=== PATIENT | male | born 1940 | race Caucasian/White ===

== ENCOUNTER 2016-08-18 12:25 | Inpatient (IN) | payer MEDICARE ==
[2016-08-18] MEDS ORDERED: NS 500 ML IV ONE (12:50)
[2016-08-18] MEDS ORDERED: ASPIRIN 325 MG TAB PO ONE (12:50)
[2016-08-18] MEDS ORDERED: SODIUM CHLORIDE 0.9% 3 ML FLUSH FLUSH PRN (12:50)
[2016-08-18] MEDS ORDERED: NS 1,000 ML IV ONE (12:50)
[2016-08-18] MEDS ORDERED: NITROGLYCERINE 0.4 MG TAB SL PRN ×2 (12:56→16:45)
--- NOTE | 2016-08-18 12:58 | EDPRACDOC ---
- General Information Information Source: Patient Mode of Arrival: Car - History of Present Illness Onset: 0500 HPI: PT STATES WOKE UP THIS AM STARTED HAVING CHEST TIGHTNESS HEAVINESS WITH SOB NAUSEA AND TROUBLE BREATHING AND DISCOMFORT RADIATING INTO HIS NECK. PT STATES HE HAS INTERMITTENT INCREASE IN SOB FOR SOMETIME BUT GOT SIGNIFICANTLY WORSE THIS AM. Chest Pain Location: Reports: Substernal Pain Radiation: Reports: Neck Symptoms Occur: Reports: Gradually (WORSENED SIGNIFICANTLY THIS AM.) Cardiac Risk Factors: Reports: Family History, Hyperlipidemia, Hypertension Cardiac History of: Reports: Cardiac Cath (20YRS AGO) PE Risk Factors: Reports: None Medications within 24 Hours: Reports: Aspirin Prehospital Care: Reports: None Pain Came On: Reports: Suddenly Pain Status: Present Now Pain Description: Reports: Pressure, Heavy, Tightness Pain Severity: Moderate Pain Worsens With: Reports: Exertion Pain Improves With: Reports: Nothing Associated Signs and Symptoms: Reports: SOB <Delia Murillo - Last Filed: 08/18/16 14:21> <Nicol Rosas - Last Filed: 08/18/16 15:24> - General Information Chief Complaint: Chest Pain Stated Complaint: CP TROUBLE BREATHING Time Seen by Provider: 08/18/16 12:48 Home Medications: Home Medications Tamsulosin HCl [Flomax] 0.4 mg PO QAM 09/28/13 Vit B Comp/C/FA/Iron/Vit E [Vitamin B Complex Tablet] 1 tab PO DAILY 09/28/13 Allopurinol [Zyloprim] 300 mg PO QAM 08/09/14 Ascorbic Acid [Vitamin C] 1,000 mg PO DAILY 08/09/14 Aspirin (OrangeEnteric Coated) [Ecotrin] 325 mg PO HS 08/09/14 Atorvastatin Calcium [Lipitor] 80 mg PO HS 08/09/[address] [place]S/Dha/Epa/Fish Oil [Fish Oil 1,200 mg Softgel] 1,200 mg PO BID 08/09/14 Vitamins, Multiple [Unicap] 1 cap PO DAILY 08/09/14 Furosemide [Lasix] 40 mg PO QAM 08/18/16 Losartan Potassium [Cozaar] 100 mg PO QAM 08/18/16 Potassium Chloride 10 meq PO BID 08/18/16 Verapamil HCl [Verapamil ER] 240 mg PO HS 08/18/16 Allergies/Adverse Reactions: Allergies Allergy/AdvReac Type Severity Reaction Status Date / Time azithromycin [From Zithromax] Allergy Intermediate Rash-Genera Verified 12:41 lized ceftriaxone sodium Allergy Intermediate Rash-Genera Verified 08/18/16 12:41 [From Rocephin] lized ED Past Medical History - History Reviewed Yes Nurses notes reviewed and agree except as marked Travel Outside of [place] in the Last 3 Months?: No - Patient Medical History Cardiac History: Reports: Hypertension, Hypercholesterolemia Respiratory History: Denies: Pneumonia GI/ History: Reports: Ulcer (1995) Musculoskeletal History: Reports: Gout, Osteoarthritis (C-spine) Psychological History: Denies: Substance Use Disorder Systemic History: Reports: Cancer (prostate) Surgical History: Reports: Appendectomy, Hernia Surgery (umbilical hernia), Other (L hip ORIF, L knee surgery, Right BKA) - Family Medical History Reports: Diabetes (MGM, son), Cancer (STOMACH-GRANDMOTHER AGE 84), Cardiac Disorders (mom-CHF, Bro- AAA) - Social Medical History Social History: Denies: Substance Use Disorder ETOH: None Substance Abuse: None Lives With: Spouse Lives In: Home <Delia Murillo - Last Filed: 08/18/16 14:21> EDM Review of Systems - Review of Systems ROS Negative Except as Marked: Yes All systems reviewed and were negative except as marked Constitutional: No Symptoms Reported. negative: Fever, Chills, Weakness, Fatigue, Loss of Appetite Eyes: No Symptoms Reported. negative: Redness, Blurred Vision, Double Vision, Discharge, Pain, Light Sensitive, Photophobia Ears: No Symptoms Reported. negative: Pain, Hearing Loss, Drainage, Ear Pulling Throat: No Symptoms Reported. negative: Pain, Swelling Nose: No Symptoms Reported. negative: Congestion, Bleeding, Discharge, Injection, Swelling, Deformity, Ecchymosis, Tender, Abrasion, Laceration Mouth: No Symptoms Reported. negative: Pain, Drooling Respiratory: Cough. negative: Barky Cough, Brassy Cough, Hemoptysis, Shortness of Breath, Wheezing Cardiovascular: Chest Pain. negative: Cyanosis, Edema, Orthopnea, Palpitations , PND, Syncope, Skin Mottling Gastrointestinal: No Symptoms Reported. negative: Pain, Constipation, Nausea, Vomiting, Diarrhea, Melena, Formula Intolerance Genitourinary: No Symptoms Reported. negative: Dysuria, Hematuria, Frequency, Discharge, Bleeding, Testicular Pain, Neurological: No Symptoms Reported. negative: Headache, Dizziness, Seizure, Numbness, Weakness, Speech Difficulty, Gait Difficulty Musculoskeletal: No Symptoms Reported. negative: Neck, Chestwall, Ribs, Back, Shoulder, Arm, Elbow, Forearm, Wrist, Hand, Pelvis, Hip, Femur, Knee, Leg, Ankle , Foot Integumentary: No Symptoms Reported. negative: Itching, Rash, Bruising, Wound Allergic/Immunologic: No Symptoms Reported. negative: Hives, Itching Hematologic: No Symptoms Reported. negative: Lymphadenopathy, Easy Bruising, Easy Bleeding Endocrine: No Symptoms Reported. negative: Weight Gain, Weight Loss Psychiatric: No Symptoms Reported. negative: Anxiety, Depression, Hallucinations, Insomnia, Suicidal <Delia Murlilo - Last Filed: 08/18/16 14:21> - Physical Exam Constitutional: No apparent distress, Alert (Awake) Oriented to: Time, Person, Place Last recorded Vital Signs: Last Vital Signs Temp 98.0 F 08/18/16 12:41 Pulse 73 08/18/16 12:41 Resp 26 H 08/18/16 12:41 BP 179/86 08/18/16 12:41 Pulse Ox 96 08/18/16 12:41 Oxygen Pulse Oxygen Saturation 96 O2 Device Room Air Oxygen Flow Rate Fraction of Inspired Oxygen ( FIO2) - HEENT Head: Normal ( normocephalic) Eye Exam: Normal (PERRL, EOMI, Sclera white) Oropharynx: Normal (Pharynx:Moist without exudate,Gums-no swelling) Tympanic Membrane: Normal ENT EAC: Normal TMJ: Normal Nose: No Symptoms Reported (septum midline) Neck: Normal (FROM, trachea at midline) - Respiratory/Cardiovascular Respiratory: Accessory Muscle Use, Diminished, Tachypnea Cardiovascular: Normal (RRR without murmur, gallop or rub) - GI Auscultation: Normal (NABS) Palpation: Normal (Soft,No rebound or guarding, non distended) Tenderness: Non tender [place]'s Sign: Negative - Bladder: Normal - Musculoskeletal Back: Normal (Non-Tender) Extremities: Normal (Normal tone, Pulses 2+ No cyanosis or edema, FROM) - Integumentary Skin: Normal, Warm, Dry Lymphatics: Normal (no adenopathy) - Neurologic Memory Impaired: Normal Motor Function: Normal (Normal tone, Pulses 2+ No cyanosis or edema, FROM) Cranial Nerve: Normal (CN II-X11 intact sensation, strength 5/5) Cerebellar: Normal Mood Description: Normal Perception: Normal <Delia Murillo - Last Filed: 08/18/16 14:21> - Physical Exam Last recorded Vital Signs: Last Vital Signs Temp 98.0 F 08/18/16 12:41 Pulse 65 08/18/16 14:59 Resp 18 08/18/16 14:59 BP 175/72 08/18/16 14:59 Pulse Ox 97 08/18/16 14:59 Oxygen Pulse Oxygen Saturation 97 O2 Device Room Air Oxygen Flow Rate Fraction of Inspired Oxygen ( FIO2) <Nicol Rosas - Last Filed: 08/18/16 15:24> ED Chest Pain Exam - Respiratory/Cardiovascular Respiratory: Accessory Muscle Use, Tachypnea Cardiovascular/Chest: Normal (RRR without murmur, gallop or rub) Radial Pulse: Normal Femoral Pulse: Normal Pedal Pulse: Normal Carotid Arteries: Normal Edema: 5 Chest Palpation: Normal (No chest tenderness) <Delia Murillo - Last Filed: 08/18/16 14:21> - Differential Diagnosis Angina, Chest wall pain, Esophageal reflux/spasm, Gastritis, Myocardial infarction, Pneumonia - Action ASA given in the ED: Yes Patient received Beta Esteban within last 24hrs: No - Re-evaluation Re-evaluation 1 Re-evaluation Time: 14:21 (PT STATES HAVING SOME RELIEF AFTER THE SECOND NITRO. PT APPEARS MORE COMFORTABLE AND NOT WORKING TO BREATH MUCH) - Results 08/18/16 13:45 08/18/16 13:45 - EKG EKG #1 EKG Time: 12:32 -: Yes EKG interpreted by me Rate: bpm: 77 [place]: Normal Rhythm: NSR Block: None Hypertrophy: None ST: Normal - Diagnostic Imaging CXR Image interpreted by: Radiologist IMPRESSION: No acute cardiopulmonary abnormality seen. <Delia Murillo - Last Filed: 08/18/16 14:21> - Results 08/18/16 13:45 08/18/16 13:45 WBC 8.3 xk/uL (3.8-10.8) 08/18/16 13:45 RBC 4.56 xM/uL (4.70-6.10) L 08/18/16 13:45 Hgb 14.0 g/dL (14.0-18.0) 08/18/16 13:45 Hct 41.5 % (42-52) L 08/18/16 13:45 MCV 91 fL (80-94) 08/18/16 13:45 MCH 30.7 pg (27-32) 08/18/16 13:45 MCHC 33.7 g/dl (33-36) 08/18/16 13:45 RDW 15.7 % (11.5-14.5) H 08/18/16 13:45 Plt Count 121 xk/uL (130-400) L 08/18/16 13:45 MPV 9.1 fL (7.4-10.4) 08/18/16 13:45 Neut % (Auto) 75.6 % (45-76) 08/18/16 13:45 Lymph % (Auto) 16.4 % (17-44) L 08/18/16 13:45 [place] % (Auto) 5.6 % (3-10) 08/18/16 13:45 Eos % (Auto) 1.8 % (0-5) 08/18/16 13:45 Baso % (Auto) 0.6 % (0-2) 08/18/16 13:45 Absolute Neuts (auto) 6.23 xk/uL (1.7-8.2) 08/18/16 13:45 Absolute Lymphs (auto) 1.33 xk/uL (0.65-4.75) 08/18/16 13:45 PT 10.8 SEC (9.2-11.2) 08/18/16 13:45 INR 1.1 08/18/16 13:45 APTT 24.3 SEC (22-35) 08/18/16 13:45 Sodium 141 mEq/L (137-146) 08/18/16 13:45 Potassium 4.2 mEq/L (3.5-5.1) 08/18/16 13:45 Chloride 101 mEq/L (98-107) 08/18/16 13:45 Carbon Dioxide 32 mMOL/L (22-33) 08/18/16 13:45 Anion Gap 12 mEq/L (8-16) 08/18/16 13:45 BUN 21 MG/DL (9-20) H 08/18/16 13:45 Creatinine 0.60 MG/DL (0.66-1.25) L 08/18/16 13:45 Estimated GFR (MDRD) > 60 mL/min (>=60) 08/18/16 13:45 Glucose 103 MG/DL (70-99) H 08/18/16 13:45 Calculated Osmolality 274 MOs/Kg (270-290) 08/18/16 13:45 Calcium 9.7 MG/DL (8.4-10.2) 08/18/16 13:45 Total Bilirubin 0.8 MG/DL (0.2-1.3) 08/18/16 13:45 AST 38 IU/L (17-59) 08/18/16 13:45 ALT 38 IU/L (21-72) 08/18/16 13:45 Alkaline Phosphatase 130 IU/L (50-160) 08/18/16 13:45 Troponin I < 0.01 ng/mL (<.04) 08/18/16 13:45 Blz-A-Jmywxenuovh Pept 93 pg/mL (0-900) 08/18/16 13:45 Total Protein 7.3 G/DL (6.3-8.2) 08/18/16 13:45 Albumin 4.1 G/DL (3.5-5.0) 08/18/16 13:45 Urine Color Yellow 08/18/16 13:12 Urine Clarity Clear 08/18/16 13:12 Urine pH 8.0 (5.0-8.0) 08/18/16 13:12 Ur Specific [place] </=1.005 (1.003-1.035) 08/18/16 13:12 Urine Protein Neg (NEG/TRACE) 08/18/16 13:12 Urine Glucose (UA) Neg (NEGATIVE) 08/18/16 13:12 Urine Ketones Neg (NEGATIVE) 08/18/16 13:12 Urine Occult Blood Neg (NEG/TRACE) 08/18/16 13:12 Urine Nitrite Neg (NEGATIVE) 08/18/16 13:12 Urine Bilirubin Neg (NEGATIVE) 08/18/16 13:12 Urine Urobilinogen <2.0 MG/DL (0-1) 08/18/16 13:12 Ur Leukocyte Esterase Trace (NEGATIVE) H 08/18/16 13:12 Urine RBC 0-2 (0-2) 08/18/16 13:12 Urine WBC 0-2 (0-2) 08/18/16 13:12 Urine Mucus Occ (NEG/OCC) 08/18/16 13:12 Lab Results 08/18/16 08/18/16 08/18/16 13:45 13:45 13:45 WBC 8.3 RBC 4.56 L Hgb 14.0 Hct 41.5 L MCV 91 MCH 30.7 MCHC 33.7 RDW 15.7 H Plt Count 121 L MPV 9.1 Neut % (Auto) 75.6 Lymph % (Auto) 16.4 L [place] % (Auto) 5.6 Eos % (Auto) 1.8 Baso % (Auto) 0.6 Absolute Neuts (auto) 6.23 Absolute Lymphs (auto) 1.33 PT 10.8 INR 1.1 APTT 24.3 Sodium 141 Potassium 4.2 Chloride 101 Carbon Dioxide 32 Anion Gap 12 BUN 21 H Creatinine 0.60 L Estimated GFR (MDRD) > 60 Glucose 103 H Calculated Osmolality 274 Calcium 9.7 Total Bilirubin 0.8 AST 38 ALT 38 Alkaline Phosphatase 130 Troponin I < 0.01 Zpk-F-Hixpbqancfi Pept 93 Total Protein 7.3 Albumin 4.1 Urine Color Urine Clarity Urine pH Ur Specific [place] Urine Protein Urine Glucose (UA) Urine Ketones Urine Occult Blood Urine Nitrite Urine Bilirubin Urine Urobilinogen Ur Leukocyte Esterase Urine RBC Urine WBC Urine Mucus 08/18/16 13:12 WBC RBC Hgb Hct MCV MCH MCHC RDW Plt Count MPV Neut % (Auto) Lymph % (Auto) [place] % (Auto) Eos % (Auto) Baso % (Auto) Absolute Neuts (auto) Absolute Lymphs (auto) PT INR APTT Sodium Potassium Chloride Carbon Dioxide Anion Gap BUN Creatinine Estimated GFR (MDRD) Glucose Calculated Osmolality Calcium Total Bilirubin AST ALT Alkaline Phosphatase Troponin I Dga-R-Bacmzrahwdy Pept Total Protein Albumin Urine Color Yellow Urine Clarity Clear Urine pH 8.0 Ur Specific [place] </=1.005 Urine Protein Neg Urine Glucose (UA) Neg Urine Ketones Neg Urine Occult Blood Neg Urine Nitrite Neg Urine Bilirubin Neg Urine Urobilinogen <2.0 Ur Leukocyte Esterase Trace H Urine RBC 0-2 Urine WBC 0-2 Urine Mucus Occ Laboratory Results - last 24 hr 08/18/16 08/18/16 08/18/16 13:12 13:45 13:45 WBC 8.3 RBC 4.56 L Hgb 14.0 Hct 41.5 L MCV 91 MCH 30.7 MCHC 33.7 RDW 15.7 H Plt Count 121 L MPV 9.1 Neut % (Auto) 75.6 Lymph % (Auto) 16.4 L [place] % (Auto) 5.6 Eos % (Auto) 1.8 Baso % (Auto) 0.6 Absolute Neuts (auto) 6.23 Absolute Lymphs (auto) 1.33 PT INR APTT Sodium 141 Potassium 4.2 Chloride 101 Carbon Dioxide 32 Anion Gap 12 BUN 21 H Creatinine 0.60 L Estimated GFR (MDRD) > 60 Glucose 103 H Calculated Osmolality 274 Calcium 9.7 Total Bilirubin 0.8 AST 38 ALT 38 Alkaline Phosphatase 130 Troponin I < 0.01 Ppw-M-Ietkuoecdsc Pept 93 Total Protein 7.3 Albumin 4.1 Urine Color Yellow Urine Clarity Clear Urine pH 8.0 Ur Specific [place] </=1.005 Urine Protein Neg Urine Glucose (UA) Neg Urine Ketones Neg Urine Occult Blood Neg Urine Nitrite Neg Urine Bilirubin Neg Urine Urobilinogen <2.0 Ur Leukocyte Esterase Trace H Urine RBC 0-2 Urine WBC 0-2 Urine Mucus Occ 08/18/16 13:45 WBC RBC Hgb Hct MCV MCH MCHC RDW Plt Count MPV Neut % (Auto) Lymph % (Auto) [place] % (Auto) Eos % (Auto) Baso % (Auto) Absolute Neuts (auto) Absolute Lymphs (auto) PT 10.8 INR 1.1 APTT 24.3 Sodium Potassium Chloride Carbon Dioxide Anion Gap BUN Creatinine Estimated GFR (MDRD) Glucose Calculated Osmolality Calcium Total Bilirubin AST ALT Alkaline Phosphatase Troponin I Bov-O-Zhxfgsxsbwc Pept Total Protein Albumin Urine Color Urine Clarity Urine pH Ur Specific [place] Urine Protein Urine Glucose (UA) Urine Ketones Urine Occult Blood Urine Nitrite Urine Bilirubin Urine Urobilinogen Ur Leukocyte Esterase Urine RBC Urine WBC Urine Mucus Laboratory Results 08/18/16 13:45 08/18/16 13:45 <Nicol Rosas - Last Filed: 08/18/16 15:24> <Delia Murillo - Last Filed: 08/18/16 14:21> - Departure Yes I personally saw and evaluated the patient. Disposition: Admit IP To This Hospital Education/Counseling Given To: Patient Education/Counseling Given Regarding: Diagnosis, Treatment Decision to Admit Time: 15:24 Decision to admit date: 08/18/16 Decision to admit: from ED - Physician Consulted Hospitalist Provider Called: Oskar St <Nicol Rosas - Last Filed: 08/18/16 15:24> - Departure Condition: Fair Final Diagnosis: Acute coronary syndrome Instructions: Chest Pain (ED)
[2016-08-18 13:43] LABS: LEUKOCYTES/URINE TRACE (NEGATIVE); NITRITE/URINE NEG (NEGATIVE); RBC/URINE 0-2 (0-2); URINE OCCULT BLOOD NEG (NEG/TRACE); WBC/URINE 0-2 (0-2)
--- NOTE | 2016-08-18 13:46 | DIRPT ---
CLINICAL DATA: Chest pain, shortness of breath. EXAM: PORTABLE CHEST 1 VIEW COMPARISON: August 11, 2014. FINDINGS: Stable cardiomediastinal silhouette. No pneumothorax or pleural effusion is noted. Both lungs are clear. The visualized skeletal structures are unremarkable. IMPRESSION: No acute cardiopulmonary abnormality seen. Electronically Signed By: Luis St Jr, M.D. On: 08/18/2016 13:44
[2016-08-18 14:02] LABS: AUTOMATED BASOPHIL 0.6 % (0-2); AUTOMATED EOSINOPHIL 1.8 % (0-5); AUTOMATED LYMPH 16.4 % (17-44); AUTOMATED MONOCYTE 5.6 % (3-10); AUTOMATED NEUTROPHIL 75.6 % (45-76); MPV 9.1 fL (7.4-10.4)
[2016-08-18 14:16] LABS: BLOOD UREA NITROGEN 21 MG/DL (9-20); CALCIUM 9.7 MG/DL (8.4-10.2); CALCULATED OSMOLALITY 274 MOs/Kg (270-290); CHLORIDE 101 mEq/L (98-107); GLUCOSE 103 MG/DL (70-99); SODIUM LEVEL 141 mEq/L (137-146); TOTAL PROTEIN 7.3 G/DL (6.3-8.2)
[2016-08-18 14:18] LABS: PARTIAL THROMB. TIME 24.3 SEC (22-35); PT-INR 1.1
[2016-08-18] MEDS ORDERED: MORPHINE 4 MG/ML INJECTION IV ONE (14:22)
[2016-08-18] MEDS ORDERED: METOPROLOL 5 MG/5 ML SDV IV ONE (14:25)
[2016-08-18] MEDS ORDERED: ONDANSETRON HCL 4 MG/2 ML VIAL IV PRN (16:04)
[2016-08-18] MEDS ORDERED: MAGNESIUM HYDROXIDE 30 ML BOTTLE PO PRN (16:04)
[2016-08-18] MEDS ORDERED: ACETAMINOPHEN 650 MG SUPP PR PRN (16:04)
--- NOTE | 2016-08-18 16:07 | HISTPHYS ---
- Chief Complaint chest pain - History of Present Illness Mr. Reveles is a pleasant 75-year-old white male with a history of obesity, hypertension, hyperlipidemia, who presents to the emergency room with complaint of chest pain. He says for the last couple days he has had exertional shortness of breath. This morning he was more short of breath and started having a tightness across his chest. Because of the severity of his symptoms, associated nausea and diaphoresis, he presented to the emergency room. He has received nitroglycerin and morphine with near complete relief of his symptoms. He states that he is followed by a mva operator in [place] but has never had any true cardiac issues. He says that his mva operator manages his hypertension and high cholesterol. He states he had a heart catheterization approximately 20 years ago and has had a couple stress tests over the years but none recently. 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 He states he is unable to tolerate nuclear stress tests due to claustrophobia. He has a very worrisome history for heart disease and will be admitted to the hospital for further evaluation and management. I have asked Dr. Andersen with Cardiology to see him in consultation to determine how best to proceed. - Medical History Cardiac History: Reports: Hypertension, Hypercholesterolemia Respiratory History: Reports: No Significant History. Denies: Pneumonia GI/ History: Reports: Ulcer (1995) Musculoskeletal History: Reports: Gout, Osteoarthritis (C-spine) Systemic History: Reports: Cancer (prostate) Neurological History: Reports: No Significant History Psychological History: Reports: No Significant History. Denies: Substance Use Disorder - Surgical History Reports: Appendectomy, Hernia Surgery (umbilical hernia), Other (L hip ORIF, L knee surgery, Right BKA) - Medictions/Allergies Allergies azithromycin [From Zithromax] Allergy (Intermediate, Verified 08/18/16 12:41) Rash-Generalized Pt developed rash after Rocephin/Zithromax on 08/10. Unable to determine which medication was cause. ceftriaxone sodium [From Rocephin] Allergy (Intermediate, Verified 08/18/16 12: 41) Rash-Generalized Pt developed rash after Rocephin and zithromax administered 08/10/14. Unable to determine which medication was cause. Home Medications Tamsulosin HCl [Flomax] 0.4 mg PO QAM 09/28/13 Vit B Comp/C/FA/Iron/Vit E [Vitamin B Complex Tablet] 1 tab PO DAILY 09/28/13 Allopurinol [Zyloprim] 300 mg PO QAM 08/09/14 Ascorbic Acid [Vitamin C] 1,000 mg PO DAILY 08/09/14 Aspirin (OrangeEnteric Coated) [Ecotrin] 325 mg PO HS 08/09/14 Atorvastatin Calcium [Lipitor] 80 mg PO HS 08/09/14 [place]-3S/Dha/Epa/Fish Oil [Fish Oil 1,200 mg Softgel] 1,200 mg PO BID 08/09/14 Vitamins, Multiple [Unicap] 1 cap PO DAILY 08/09/14 Furosemide [Lasix] 40 mg PO QAM 08/18/16 Losartan Potassium [Cozaar] 100 mg PO QAM 08/18/16 Potassium Chloride 10 meq PO BID 08/18/16 Verapamil HCl [Verapamil ER] 240 mg PO HS 08/18/16 - Family History Reports: Diabetes (MGM, son), Cancer (STOMACH-GRANDMOTHER AGE 84), Cardiac Disorders (mom-CHF, Bro- AAA) - Social History Lives: with Spouse Smoking Status: Former smoker Social History: Denies: Alcohol Use, Substance Use Disorder - Review of Systems Constitutional: No Symptoms Reported. negative: Fever, Chills, Weakness, Fatigue, Loss of Appetite - Eyes No Symptoms Reported. negative: Blurred Vision, Double Vision, Pain, Photophobia - Ears No Symptoms Reported. negative: Drainage, Hearing Loss, Pain - Nose No Symptoms Reported. negative: Abrasion, Bleeding, Congestion - Mouth Mouth: No Symptoms Reported. negative: Pain, Drooling, Denture - Throat/Neck No Symptoms Reported. negative: Pain, Swelling, Hoarseness, Snoring - Respiratory Shortness of Breath. negative: Cough, Wheezing, Sputum, Asthma - Cardiovascular Chest Pain, Cyanosis, Orthopnea - Gastrointestinal Gastrointestinal: Dysphasia. negative: Nausea, Vomiting - Genitourinary Genitourinary: No Symptoms Reported. negative: Bleeding, Dysuria, Discharge - Neurological No Symptoms Reported. negative: Dizziness, Gait Difficulty, Seizure, Speech Difficulty - Musculoskeletal Musculoskeletal:: Arthritis - Integumentary No Symptoms Reported. negative: Bruising, Itching, Rash, Pressure Sore - Allergic/Immunologic No Symptoms Reported. negative: Hives, Itching - Hematologic No Symptoms Reported. negative: Lymphadenopathy, Easy Bleeding - Endocrine No Symptoms Reported. negative: Weight Gain, Weight Loss, Excessive Thirst, Heat Intolerance, Cold Intolerance - Psychiatric No Symptoms Reported. negative: Anxiety, Hallucinations - Physical Exam Constitutional: No apparent distress, Alert (Awake) Oriented to: Time, Person, Place Exam: Last Vital Signs Temp 98.0 F 08/18/16 12:41 Pulse 65 08/18/16 14:59 Resp 18 08/18/16 14:59 BP 175/72 08/18/16 14:59 Pulse Ox 97 08/18/16 14:59 Intake & Output 08/18/16 08/18/16 08/18/16 07:59 15:59 23:59 Patient's weight 131.542 kg - HEENT Head: Normal ( normocephalic) Eye: Normal (PERRL, EOMI, Sclera white) Oropharynx: Normal (Pharynx:Moist without exudate,Gums-no swelling) Tympanic Membrane: Normal ENT EAC: Normal TMJ: Normal Nose: No Symptoms Reported (septum midline) - Respiratory/Cardiovascular Respiratory: Diminished. negative: Rales, Rhonchi, Wheezes Cardiovascular: Normal, Systolic murmur - GI Auscultation: Normal (NABS) Palpation: Normal (Soft,No rebound or guarding, non distended) Tenderness: Non tender - Musculoskeletal Back: Normal (Non-Tender). negative: Abrasion Extremities: Normal (Normal tone, Pulses 2+ No cyanosis or edema, FROM). negative: Calf Tenderness - Integumentary Skin: Normal, Warm, Dry Lymphatics: Normal (no adenopathy) - Neurologic Memory Impaired: Normal Motor Function: Normal Cranial Nerve: Normal Cerebellar: Normal Mood Description: Normal Thought: Coherent Perception: Normal - Focused CV Perfusion Exam Vital Signs: Last Vital Signs Temp 98.0 F 08/18/16 12:41 Pulse 65 08/18/16 14:59 Resp 18 08/18/16 14:59 BP 175/72 08/18/16 14:59 Pulse Ox 97 08/18/16 14:59 - Lab Results Laboratory Results - last 24 hr 08/18/16 08/18/16 08/18/16 13:12 13:45 13:45 WBC 8.3 RBC 4.56 L Hgb 14.0 Hct 41.5 L MCV 91 MCH 30.7 MCHC 33.7 RDW 15.7 H Plt Count 121 L MPV 9.1 Neut % (Auto) 75.6 Lymph % (Auto) 16.4 L [place] % (Auto) 5.6 Eos % (Auto) 1.8 Baso % (Auto) 0.6 Absolute Neuts (auto) 6.23 Absolute Lymphs (auto) 1.33 PT INR APTT Sodium 141 Potassium 4.2 Chloride 101 Carbon Dioxide 32 Anion Gap 12 BUN 21 H Creatinine 0.60 L Estimated GFR (MDRD) > 60 Glucose 103 H Calculated Osmolality 274 Calcium 9.7 Total Bilirubin 0.8 AST 38 ALT 38 Alkaline Phosphatase 130 Troponin I < 0.01 Pkj-F-Qbhdkagavdp Pept 93 Total Protein 7.3 Albumin 4.1 Urine Color Yellow Urine Clarity Clear Urine pH 8.0 Ur Specific [place] </=1.005 Urine Protein Neg Urine Glucose (UA) Neg Urine Ketones Neg Urine Occult Blood Neg Urine Nitrite Neg Urine Bilirubin Neg Urine Urobilinogen <2.0 Ur Leukocyte Esterase Trace H Urine RBC 0-2 Urine WBC 0-2 Urine Mucus Occ 08/18/16 13:45 WBC RBC Hgb Hct MCV MCH MCHC RDW Plt Count MPV Neut % (Auto) Lymph % (Auto) [place] % (Auto) Eos % (Auto) Baso % (Auto) Absolute Neuts (auto) Absolute Lymphs (auto) PT 10.8 INR 1.1 APTT 24.3 Sodium Potassium Chloride Carbon Dioxide Anion Gap BUN Creatinine Estimated GFR (MDRD) Glucose Calculated Osmolality Calcium Total Bilirubin AST ALT Alkaline Phosphatase Troponin I Irp-C-Snddvyprmsk Pept Total Protein Albumin Urine Color Urine Clarity Urine pH Ur Specific [place] Urine Protein Urine Glucose (UA) Urine Ketones Urine Occult Blood Urine Nitrite Urine Bilirubin Urine Urobilinogen Ur Leukocyte Esterase Urine RBC Urine WBC Urine Mucus - Assessment (1) Acute coronary syndrome I24.9 - ACUTE ISCHEMIC HEART DISEASE, UNSPECIFIED Acute Present on Admission: Yes Worrisome history with exertional shortness of breath and chest tightness. No known heart disease but multiple risk factors including hypertension, hyperlipidemia, obesity, age, peripheral arterial disease. Will admit. Continue aspirin. Change verapamil to metoprolol. Add nitropaste. Continue statin. Will ask Cardiology to see in consultation. Concerned that may require heart catheterization but the very least stress testing. (2) Hyperlipidemia E78.5 - HYPERLIPIDEMIA, UNSPECIFIED Acute Present on Admission: Yes Qualifiers: Hyperlipidemia type: pure hypercholesterolemia Qualified Code(s): E78.00 - Pure hypercholesterolemia, unspecified; E78.0 - Pure hypercholesterolemia Continue medications and monitor. (3) Hypertension I10 - ESSENTIAL (PRIMARY) HYPERTENSION Acute Present on Admission: Yes Qualifiers: Hypertension type: essential hypertension Qualified Code(s): I10 - Essential (primary) hypertension Continue home medications and monitor. We are changing verapamil to metoprolol (4) Peripheral vascular disease I73.9 - PERIPHERAL VASCULAR DISEASE, UNSPECIFIED Acute Present on Admission: Yes continue home medications Case Care Discussed with: Patient, Consultants, Family
[2016-08-18] MEDS ORDERED: MORPHINE 2 MG/ML INJECTION IV PRN (16:09)
--- NOTE | 2016-08-18 16:50 | PCM.CARDCO ---
Consultation Date: 08/18/16 Requesting Physician: Oskar St Yard Jacker: Patrick Andersen Consult Reason: Chest Pain - History of Present Illness Patient is a 75 years old gentleman with hypertension dyslipidemia who presented to the emergency with chief complaint of shortness of breath apparently about 5 o'clock in the morning he woke up in the middle of the night with tightness in the chest and shortness of breath he had to sit up to catch his breath. He being that way for majority of the day eventually he end up coming to the emergency room. In the emergency room he was given nitroglycerin as well as aspirin morphine and seems to be doing better right now. Denies having any chest pain shortness of breath improved quite significantly. He reports to have those symptoms on and off for. Of last couple weeks. He seeing academic interventionist since [place] Dr. Henok Chapman for number [phone]. In the middle of summer he started having some swelling of lower extremities and shortness of breath echocardiogram was not done but he was told to take some extra diuretic which helped him. His ability to exercise is fairly limited because of the fact that he get procedures on his right lower extremities he lost his leg when he was very young cousin results of accident. Never had any myocardial infarction. Chief Complaint: chest pain - Past Medical and Surgical History Cardiac History: Reports: Hypertension, Hypercholesterolemia Respiratory History: Denies: Pneumonia GI/ History: Reports: Ulcer (1995) Systemic History: Reports: Cancer (prostate) Musculoskeletal History: Reports: Gout, Osteoarthritis (C-spine) Psychological History: Denies: Substance Use Disorder Past Surgical History: Reports: Appendectomy, Hernia Surgery (umbilical hernia) , Other (L hip ORIF, L knee surgery, Right BKA) Allergies azithromycin [From Zithromax] Allergy (Intermediate, Verified 08/18/16 12:41) Rash-Generalized Pt developed rash after Rocephin/Zithromax on 08/10. Unable to determine which medication was cause. ceftriaxone sodium [From Rocephin] Allergy (Intermediate, Verified 08/18/16 12: 41) Rash-Generalized Pt developed rash after Rocephin and zithromax administered 08/10/14. Unable to determine which medication was cause. Home Medications Tamsulosin HCl [Flomax] 0.4 mg PO QAM 09/28/13 Vit B Comp/C/FA/Iron/Vit E [Vitamin B Complex Tablet] 1 tab PO DAILY 09/28/13 Allopurinol [Zyloprim] 300 mg PO QAM 08/09/14 Ascorbic Acid [Vitamin C] 1,000 mg PO DAILY 08/09/14 Aspirin (OrangeEnteric Coated) [Ecotrin] 325 mg PO HS 08/09/14 Atorvastatin Calcium [Lipitor] 80 mg PO HS 08/09/14 [place]-3S/Dha/Epa/Fish Oil [Fish Oil 1,200 mg Softgel] 1,200 mg PO BID 08/09/14 Vitamins, Multiple [Unicap] 1 cap PO DAILY 08/09/14 Furosemide [Lasix] 40 mg PO QAM 08/18/16 Losartan Potassium [Cozaar] 100 mg PO QAM 08/18/16 Potassium Chloride 10 meq PO BID 08/18/16 Verapamil HCl [Verapamil ER] 240 mg PO HS 08/18/16 - Social History Social History: Denies: Substance Use Disorder - Family History Reports: Diabetes (MGM, son), Cancer (STOMACH-GRANDMOTHER AGE 84), Cardiac Disorders (mom-CHF, Bro- AAA) - Review of Systems Constitutional: No Symptoms Reported. negative: Fever, Chills, Weakness, Fatigue, Loss of Appetite - Physical Exam Constitutional: No apparent distress, Alert (Awake) Oriented to: Time, Person, Place Exam: Last Vital Signs Temp 98.3 F 08/18/16 16:39 Pulse 72 08/18/16 16:39 Resp 18 08/18/16 16:39 BP 170/79 08/18/16 16:39 Pulse Ox 100 08/18/16 16:39 Intake & Output 08/18/16 08/18/16 08/18/16 07:59 15:59 23:59 Intake Total 875 Output Total 150 Balance 725 Patient's weight 131.542 kg - HEENT Head: Normal ( normocephalic) Eye: Normal (PERRL, EOMI, Sclera white) Oropharynx: Normal (Pharynx:Moist without exudate,Gums-no swelling) Tympanic Membrane: Normal ENT EAC: Normal TMJ: Normal Nose: No Symptoms Reported (septum midline) - Respiratory/Cardiovascular Respiratory: Accessory Muscle Use, Tachypnea - GI Auscultation: Normal (NABS) Palpation: Normal (Soft,No rebound or guarding, non distended) Tenderness: Non tender - Musculoskeletal Back: Normal (Non-Tender) Extremities: Normal (Normal tone, Pulses 2+ No cyanosis or edema, FROM) - Integumentary Skin: Normal, Warm, Dry Lymphatics: Normal (no adenopathy) - Neurologic Memory Impaired: Normal Cerebellar: Normal Mood Description: Normal Perception: Normal - Other Exam Other Exam Findings: General Appearance: Well developed. Well nourished. In no acute distress. Obese gentleman. Lungs: Chest was not overinflated. Clear to auscultation. Poor air entry bilaterally Cardiovascular: Jugular Venous Distention: JVD not increased. Heart Rate And Rhythm: Normal. Heart Sounds: Normal. Murmurs: Soft systolic murmur grade 1/6 best heard at the right upper portion the sternum without radiation. Carotid Arteries: Carotid pulses were normal. No bruit in the carotid artery. Edema: Not present. Lower extremities : Below-knee amputation on the right side. Left lower extremity 1+ swelling with some chronic venous stasis. Poorly palpable pulse. Musculoskeletal System: General/bilateral: No cyanosis of the fingers. Neurological: Oriented to time, place, and person. Nails: No clubbing of the fingernails. - Lab Results Laboratory Tests 08/18/16 08/18/16 08/18/16 13:12 13:45 13:45 WBC 8.3 RBC 4.56 L Hgb 14.0 Hct 41.5 L MCV 91 MCH 30.7 MCHC 33.7 RDW 15.7 H Plt Count 121 L MPV 9.1 Neut % (Auto) 75.6 Lymph % (Auto) 16.4 L [place] % (Auto) 5.6 Eos % (Auto) 1.8 Baso % (Auto) 0.6 Absolute Neuts (auto) 6.23 Absolute Lymphs (auto) 1.33 PT INR APTT Sodium 141 Potassium 4.2 Chloride 101 Carbon Dioxide 32 Anion Gap 12 BUN 21 H Creatinine 0.60 L Estimated GFR (MDRD) > 60 Glucose 103 H Calculated Osmolality 274 Calcium 9.7 Total Bilirubin 0.8 AST 38 ALT 38 Alkaline Phosphatase 130 Troponin I < 0.01 Scu-Q-Wevwytywxze Pept 93 Total Protein 7.3 Albumin 4.1 Urine Color Yellow Urine Clarity Clear Urine pH 8.0 Ur Specific [place] </=1.005 Urine Protein Neg Urine Glucose (UA) Neg Urine Ketones Neg Urine Occult Blood Neg Urine Nitrite Neg Urine Bilirubin Neg Urine Urobilinogen <2.0 Ur Leukocyte Esterase Trace H Urine RBC 0-2 Urine WBC 0-2 Urine Mucus Occ 08/18/16 13:45 WBC RBC Hgb Hct MCV MCH MCHC RDW Plt Count MPV Neut % (Auto) Lymph % (Auto) [place] % (Auto) Eos % (Auto) Baso % (Auto) Absolute Neuts (auto) Absolute Lymphs (auto) PT 10.8 INR 1.1 APTT 24.3 Sodium Potassium Chloride Carbon Dioxide Anion Gap BUN Creatinine Estimated GFR (MDRD) Glucose Calculated Osmolality Calcium Total Bilirubin AST ALT Alkaline Phosphatase Troponin I Lzm-U-Itztjcllfrm Pept Total Protein Albumin Urine Color Urine Clarity Urine pH Ur Specific [place] Urine Protein Urine Glucose (UA) Urine Ketones Urine Occult Blood Urine Nitrite Urine Bilirubin Urine Urobilinogen Ur Leukocyte Esterase Urine RBC Urine WBC Urine Mucus - Diagnostic Findings EKG did not show any diagnostic changes. Plan: I cannot axis assessment and plan in the computer therefore I will dictated here. 1. Chest pain suspicious for acute coronary syndrome. He is on aspirin which I will continue. I will add full dose of Lovenox. Will monitor his cardiac enzymes as well as troponin I. because of his multiple risk factors as well as his symptoms which are very worrisome we most likely will proceed to cardiac catheterization. He expressed his wishes that he prefer to have a cardiac catheterization done with his academic interventionist at [place]. One will make a decision about cardiac catheterization will work out details of possible transfer. He is already on ARB which I will continue. Will try to put him on beta-jamal. I will put him also on diuretics. 2. Congestive heart failure: Echocardiogram will be done tomorrow will get his pro BNP today. Diuretic will be increased and given intravenously. I will add small dose of beta-jamal will continue with ARB. Future recommendation terms of treatment of this condition will be made after echocardiogram will be done. 3. Hypertension: Will continue with present medications. I will add small dose of beta-jamal as well as increase dose of diuresis and nitroglycerin which should help her with hypertension as well. 4. Dyslipidemia: Will continue with statin.
[2016-08-18] MEDS: ENOXAPARIN SODIUM 100 MG, ENOXAPARIN SODIUM 30 MG SQ SCH ×2 (16:59)
[2016-08-18] MEDS ORDERED: Enoxaparin 1 mg per kg per dose SQ SCH (17:00)
[2016-08-18] MEDS ORDERED: ENOXAPARIN 40 MG/0.4 ML PFS SQ SCH (17:00)
[2016-08-18] MEDS ORDERED: Nitroglycerin D5W 50,000 MCG/250 ML IVBOT IV SCH (17:00)
[2016-08-18] MEDS ORDERED: Pharmacy Order Set Alert SCH (17:00)
[2016-08-18] MEDS ORDERED: SODIUM CHLORIDE 0.9% 3 ML FLUSH FLUSH SCH (18:00)
[2016-08-18] MEDS: Furosemide 100 MG/10 ML VIAL IV SCH (18:09)
[2016-08-18] MEDS: NITROGLYCERINE 2 % OINTMENT PACK TOP SCH ×2 (18:13→21:21)
[2016-08-18] MEDS: POTASSIUM CHLORIDE 10 MEQ TABLET PO SCH (18:14)
[2016-08-18] MEDS: OMEGA-3-ACID ETHYL ESTERS 1000 MG CAP PO SCH (18:14)
[2016-08-18] MEDS ORDERED: Vaccine Screening Complete SCH (19:00)
[2016-08-18] MEDS: ATORVASTATIN 80 MG TAB PO SCH (20:56)
[2016-08-18] MEDS: Aspirin (Orange Enteric Coated) 325 mg tab PO SCH (20:56)
[2016-08-18] MEDS: METOPROLOL TARTRATE 25 MG TAB PO SCH (20:56)
[2016-08-18] MEDS: ACETAMINOPHEN 325 MG/TAB TABLET PO PRN (20:57)
[2016-08-18] MEDS ORDERED: Non-Formulary Medication ITEM (Potassium Chloride [Potassium Chloride] 10 MEQ) PO SCH (21:00)
[2016-08-18] MEDS ORDERED: EPA PO SCH (21:00)
[2016-08-18] MEDS ORDERED: [UNRECOGNIZED DRUG - OTHER] PO SCH (21:00)
[2016-08-18] MEDS ORDERED: OMEGA PO SCH (21:00)
[2016-08-18] MEDS ORDERED: DHA PO SCH (21:00)
[2016-08-18] MEDS ORDERED: FISH OIL PO SCH (21:00)
[2016-08-19 03:21] LABS: CPK TOTAL WITH POSSIBLE MB 61 IU/L (55-170)
[2016-08-19 03:23] LABS: BLOOD UREA NITROGEN 22 MG/DL (9-20); CALCIUM 9.2 MG/DL (8.4-10.2); CALCULATED OSMOLALITY 274 MOs/Kg (270-290); CHLORIDE 102 mEq/L (98-107); GLUCOSE 101 MG/DL (70-99); LDL (calc.) 92.8 MG/DL (<100); SODIUM LEVEL 141 mEq/L (137-146); VLDL (calc.) 19.2 MG/DL (5-40)
[2016-08-19] MEDS: NITROGLYCERINE 2 % OINTMENT PACK TOP SCH ×4 (04:41→23:27)
[2016-08-19] MEDS: ENOXAPARIN SODIUM 100 MG, ENOXAPARIN SODIUM 30 MG SQ SCH ×4 (06:04→17:25)
[2016-08-19] MEDS: FUROSEMIDE 40 MG TAB PO SCH (07:22)
[2016-08-19] MEDS: Furosemide 100 MG/10 ML VIAL IV SCH (07:22)
[2016-08-19] MEDS ORDERED: IRON PO SCH (09:00)
[2016-08-19] MEDS ORDERED: Non-Formulary Medication ITEM (Losartan Potassium [Cozaar] 100 MG) PO SCH (09:00)
[2016-08-19] MEDS ORDERED: Non-Formulary Medication ITEM (Ascorbic Acid [Vitamin C] 1,000 MG) PO SCH (09:00)
[2016-08-19] MEDS ORDERED: VIT B COMP PO SCH (09:00)
[2016-08-19] MEDS ORDERED: [UNRECOGNIZED DRUG - OTHER] PO SCH (09:00)
--- NOTE | 2016-08-19 11:21 | CAPUECHO ---
INDICATION: SOB HEIGHT: 170.2 cm (5 ft 7.0 in) WEIGHT: 131.5 kg (290.0 lbs) BP: 142/76 BSA: 2.758164 m MEASUREMENTS 2D RVIDd: 3.7 cm LVOT Diam: 2.1 cm IVSd: 1.4 cm LVIDd: 4.5 cm LVPWd: 1.4 cm LVIDs: 3.2 cm EF(Teich): 56.51 % LA Diam: 4.7 cm EF Biplane: 50.16 % LAESV MOD A4C: 132.3 ml LAESV MOD A2C: 87.0 ml LAESV Index (A-L): 52.49 ml/m DOPPLER MV E Andrew: 0.85 m/s MV A Andrew: 1.08 m/s MV PHT: 89.25 ms MVA By PHT: 2.47 cm LVOT Vmax: 1.23 m/s AV Vmax: 2.10 m/s NICK Vmax, Pt: 2.00 cm AV Vmax: 2.03 m/s FINDINGS ------- Procedure:2D images, m-mode, color and spectral Doppler were obtained and reviewed. ECG rhythm:Sinus rhythm. Study quality:This was a technically adequate study. Left Ventricle:The left ventricular size is normal. There is moderate concentric left ventricular hypertrophy. Overall left ventricular systolic function is normal with, an EF between 55 - 60 %. The diastolic filling pattern indicates impaired relaxation. Respitory changes with MV inflow, mild . Right Ventricle:The right ventricle is normal in size and function. Left Atrium:The left atrium is mildly dilated. Right Atrium:The right atrium is normal in size and function. Aortic Valve:The aortic valve is trileaflet and appears structurally normal. There is moderate aor tic valve sclerosis. There is mild aortic stenosis present. The aortic valve area by continuity equation is 2.07 cm square.}. Peak/mean gradient across the valve is {18 mmhg maxPG} / {10 mmhgmean PG}. Mitral Valve:Normal appearing mitral valve. Mild mitral annular calcification present. There is trace mitral regurgitation. Tricuspid Valve:The tricuspid valve appears structurally normal. Trace tricuspid regurgitation pre sent. Pulmonic Valve:The pulmonic valve is normal. There is no pulmonic regurgitation present. Aorta:The aortic root, ascending aorta and aortic arch appear normal. IVC:Normal inferior vena cava with normal inspiratory collapse. Pericardium:There is no pericardial effusion. CONCLUSIONS 1. There is moderate concentric left ventricular hypertrophy. 2. Overall left ventricular systolic function is normal with, an EF between 55 - 60 %. 3. The diastolic filling pattern indicates impaired relaxation. Respitory changes with MV inflow, mi ld. 4. The left atrium is mildly dilated. 5. There is moderate aortic valve sclerosis. 6. There is mild aortic stenosis present. 7. There is trace mitral regurgitation. 8. Trace tricuspid regurgitation present. Electronically Signed By: Patrick Andersen MD -- Electronically Signed On: 11:20:00
--- NOTE | 2016-08-19 12:00 | PCM.CARD ---
- Subjective Reason for visit: Follow up chest pain and shortness of breath Doing better but has some episode of chest pain this morning. Vital Signs: Last Vital Signs Temp 98.1 F 08/19/16 09:02 Pulse 66 08/19/16 11:05 Resp 22 08/19/16 09:02 BP 153/78 08/19/16 11:05 Pulse Ox 94 08/19/16 09:06 PE: General Appearance: Well developed. Well nourished. In no acute distress. Lungs: Chest was not overinflated. Clear to auscultation. Cardiovascular: Jugular Venous Distention: JVD not increased. Heart Rate And Rhythm: Normal. Heart Sounds: Normal. Murmurs: No murmurs were heard. Carotid Arteries: Carotid pulses were normal. No bruit in the carotid artery. Edema: Not present. Lower extremities pulses normal (including femoral popliteal and dorsalis pedis) . Musculoskeletal System: General/bilateral: No cyanosis of the fingers. Neurological: Oriented to time, place, and person. Nails: No clubbing of the fingernails. Lab/DI Results Reviewed: Laboratory Results - last 24 hr 08/18/16 08/18/16 08/18/16 13:12 13:45 13:45 WBC 8.3 RBC 4.56 L Hgb 14.0 Hct 41.5 L MCV 91 MCH 30.7 MCHC 33.7 RDW 15.7 H Plt Count 121 L MPV 9.1 Neut % (Auto) 75.6 Lymph % (Auto) 16.4 L [place] % (Auto) 5.6 Eos % (Auto) 1.8 Baso % (Auto) 0.6 Absolute Neuts (auto) 6.23 Absolute Lymphs (auto) 1.33 PT INR APTT Sodium 141 Potassium 4.2 Chloride 101 Carbon Dioxide 32 Anion Gap 12 BUN 21 H Creatinine 0.60 L Estimated GFR (MDRD) > 60 Glucose 103 H Calculated Osmolality 274 Calcium 9.7 Total Bilirubin 0.8 AST 38 ALT 38 Alkaline Phosphatase 130 Creatine Kinase Troponin I < 0.01 Qgy-G-Fjfyiqalhzi Pept 93 Total Protein 7.3 Albumin 4.1 Triglycerides Cholesterol LDL Cholesterol, Calc VLDL Cholesterol, Calc HDL Cholesterol Cholesterol/HDL Ratio Urine Color Yellow Urine Clarity Clear Urine pH 8.0 Ur Specific [place] </=1.005 Urine Protein Neg Urine Glucose (UA) Neg Urine Ketones Neg Urine Occult Blood Neg Urine Nitrite Neg Urine Bilirubin Neg Urine Urobilinogen <2.0 Ur Leukocyte Esterase Trace H Urine RBC 0-2 Urine WBC 0-2 Urine Mucus Occ 08/18/16 08/18/16 08/19/16 13:45 17:25 02:55 WBC RBC Hgb Hct MCV MCH MCHC RDW Plt Count MPV Neut % (Auto) Lymph % (Auto) [place] % (Auto) Eos % (Auto) Baso % (Auto) Absolute Neuts (auto) Absolute Lymphs (auto) PT 10.8 INR 1.1 APTT 24.3 Sodium 141 Potassium 4.0 Chloride 102 Carbon Dioxide 31 Anion Gap 12 BUN 22 H Creatinine 0.60 L Estimated GFR (MDRD) > 60 Glucose 101 H Calculated Osmolality 274 Calcium 9.2 Total Bilirubin AST ALT Alkaline Phosphatase Creatine Kinase Troponin I < 0.01 Asq-O-Cobwmmpojpi Pept Total Protein Albumin Triglycerides 96 Cholesterol 145 LDL Cholesterol, Calc 92.8 VLDL Cholesterol, Calc 19.2 HDL Cholesterol 33.0 L Cholesterol/HDL Ratio 4.4 Urine Color Urine Clarity Urine pH Ur Specific [place] Urine Protein Urine Glucose (UA) Urine Ketones Urine Occult Blood Urine Nitrite Urine Bilirubin Urine Urobilinogen Ur Leukocyte Esterase Urine RBC Urine WBC Urine Mucus 08/19/16 02:55 WBC RBC Hgb Hct MCV MCH MCHC RDW Plt Count MPV Neut % (Auto) Lymph % (Auto) [place] % (Auto) Eos % (Auto) Baso % (Auto) Absolute Neuts (auto) Absolute Lymphs (auto) PT INR APTT Sodium Potassium Chloride Carbon Dioxide Anion Gap BUN Creatinine Estimated GFR (MDRD) Glucose Calculated Osmolality Calcium Total Bilirubin AST ALT Alkaline Phosphatase Creatine Kinase 61 Troponin I < 0.01 Owe-J-Fdkgncogcln Pept Total Protein Albumin Triglycerides Cholesterol LDL Cholesterol, Calc VLDL Cholesterol, Calc HDL Cholesterol Cholesterol/HDL Ratio Urine Color Urine Clarity Urine pH Ur Specific [place] Urine Protein Urine Glucose (UA) Urine Ketones Urine Occult Blood Urine Nitrite Urine Bilirubin Urine Urobilinogen Ur Leukocyte Esterase Urine RBC Urine WBC Urine Mucus - Assessment/Plan (1) Acute coronary syndrome Acute I24.9 - ACUTE ISCHEMIC HEART DISEASE, UNSPECIFIED Present on Admission: Yes Comment/Plan: Patient is having intermittent chest pain. He does have multiple risk factors for coronary artery disease. We had a long discussion about what to do in this situation. We basically facing 2 options either cardiac catheterization or stress testing. He said that he definitely would like to have a test that will clearly answer with the problem is he agreed to proceed with cardiac catheterization he did have already 1 years ago that procedure was explained to him including all risk benefits as well as alternatives. He does have horrible headache because of nitroglycerin which I will stop I will put him on ranolazine. He will make a decision tomorrow where he would like to go for cardiac catheterization eitherem. (2) Hyperlipidemia Chronic E78.5 - HYPERLIPIDEMIA, UNSPECIFIED Present on Admission: Yes pure hypercholesterolemia E78.00 - Pure hypercholesterolemia, unspecified; E78.0 - Pure hypercholesterolemia Comment/Plan: His cholesterol is at up appropriate level will continue present management. (3) Hypertension Chronic I10 - ESSENTIAL (PRIMARY) HYPERTENSION Present on Admission: Yes essential hypertension I10 - Essential (primary) hypertension Comment/Plan: Will adjust medication to make it better. - Plan Gentleman with chest pain as well as shortness of breath. He came to the emergency room yesterday did have a chest pain which was very worrisome on top of that he was sweaty how she in spite of that all his biochemical markers appears to be normal including proBNP. We will proceed with CT scan of his chest today to make sure there is no pulmonary emboli. Will proceed with cardiac catheterization to make sure there is no significant coronary artery disease.
--- NOTE | 2016-08-19 12:17 | CAPUEKG ---
[place], [place] Test Date: 2016-08-19 Pat Name: JAYRO DELATORRE Department: Room: 441 Gender: Male Professor Of Literature: : Requested By: Order Number: Reading MD: Patrick Andersen MD Measurements Intervals [place] Rate: 66 P: 69 AR: 150 QRS: 55 QRSD: 76 T: 44 QT: 422 QTc: 442 Interpretive Statements Sinus rhythm with fusion complexes Junctional ST depression, probably abnormal Abnormal ECG Electronically Signed On 08-19-16 12:16:46 EST by Patrick Andersen MD <[id number]> [id number]
[2016-08-19] MEDS ORDERED: ALPRAZOLAM 0.5 MG TAB PO ONE (12:38)
--- NOTE | 2016-08-19 12:45 | GENMEDPROG ---
Chief Complaint: Still with chest pain and shortness of breath. Will need heart catheterization. Patient deciding between [facility] and [facility]. Notes Reviewed: Yes Events from last night noted and discussed with Clinical Staff Current Medication List: Reviewed Currently: Reports: MONTERROSO, SOB, Sputum. Denies: Cough, Wheezing - Physical Examination Vital Signs and I&O: Last Vital Signs Temp 98.0 F 08/19/16 12:18 Pulse 72 08/19/16 12:18 Resp 22 08/19/16 12:18 BP 142/68 08/19/16 12:00 Pulse Ox 94 08/19/16 12:18 Oxygen Pulse Oxygen Saturation 94 O2 Device Nasal Cannula Oxygen Flow Rate 2 Fraction of Inspired Oxygen ( FIO2) Intake & Output 08/16/16 08/17/16 08/18/16 08/19/16 23:59 23:59 23:59 23:59 Intake Total 1115 32 Output Total 2140 800 Balance -1025 -768 Patient's weight 129.909 kg 128.276 kg General: Alert, Oriented x3, Cooperative, Mild distress. negative: Well appearing (Ill-appearing) HEENT: Normal, PERRLA, EOMI, Anicteric Sclera Neck: Non-tender, Full range of motion, Normal Trachea alignment, Normal inspection. negative: JVD Lymphatics: Normal (no adenopathy). negative: Adenopathy Respiratory: Accessory Muscle Use, Tachypnea Cardiovascular: Regular rate and rhythm, No Gallops,Rubs/Murmurs GI: Normal bowel sounds, Soft, Non tender, No hepatospenomegaly, No masses Extremities/Musculoskeletal: Normal pulses. negative: Tenderness, Swelling, Clubbing Skin: Warm,Dry and Intact, No rashes, No breakdown, No significant lesion Neurological: Normal Steady Gait, Normal speech, Strength at 5/5 X4 ext, Normal tone, Cranial nerves 3-12 NL Psych/Mental Status: Appropriate, Normal Affect, Cooperative Lab/DI/Studies Reviewed: Laboratory Results - last 24 hr 08/18/16 08/18/16 08/18/16 13:12 13:45 13:45 WBC 8.3 RBC 4.56 L Hgb 14.0 Hct 41.5 L MCV 91 MCH 30.7 MCHC 33.7 RDW 15.7 H Plt Count 121 L MPV 9.1 Neut % (Auto) 75.6 Lymph % (Auto) 16.4 L [place] % (Auto) 5.6 Eos % (Auto) 1.8 Baso % (Auto) 0.6 Absolute Neuts (auto) 6.23 Absolute Lymphs (auto) 1.33 PT INR APTT Sodium 141 Potassium 4.2 Chloride 101 Carbon Dioxide 32 Anion Gap 12 BUN 21 H Creatinine 0.60 L Estimated GFR (MDRD) > 60 Glucose 103 H Calculated Osmolality 274 Calcium 9.7 Total Bilirubin 0.8 AST 38 ALT 38 Alkaline Phosphatase 130 Creatine Kinase Troponin I < 0.01 Ijh-P-Gpxjjhhglcq Pept 93 Total Protein 7.3 Albumin 4.1 Triglycerides Cholesterol LDL Cholesterol, Calc VLDL Cholesterol, Calc HDL Cholesterol Cholesterol/HDL Ratio Urine Color Yellow Urine Clarity Clear Urine pH 8.0 Ur Specific [place] </=1.005 Urine Protein Neg Urine Glucose (UA) Neg Urine Ketones Neg Urine Occult Blood Neg Urine Nitrite Neg Urine Bilirubin Neg Urine Urobilinogen <2.0 Ur Leukocyte Esterase Trace H Urine RBC 0-2 Urine WBC 0-2 Urine Mucus Occ 08/18/16 08/18/16 08/19/16 13:45 17:25 02:55 WBC RBC Hgb Hct MCV MCH MCHC RDW Plt Count MPV Neut % (Auto) Lymph % (Auto) [place] % (Auto) Eos % (Auto) Baso % (Auto) Absolute Neuts (auto) Absolute Lymphs (auto) PT 10.8 INR 1.1 APTT 24.3 Sodium 141 Potassium 4.0 Chloride 102 Carbon Dioxide 31 Anion Gap 12 BUN 22 H Creatinine 0.60 L Estimated GFR (MDRD) > 60 Glucose 101 H Calculated Osmolality 274 Calcium 9.2 Total Bilirubin AST ALT Alkaline Phosphatase Creatine Kinase Troponin I < 0.01 Fex-J-Kupknrfwqzt Pept Total Protein Albumin Triglycerides 96 Cholesterol 145 LDL Cholesterol, Calc 92.8 VLDL Cholesterol, Calc 19.2 HDL Cholesterol 33.0 L Cholesterol/HDL Ratio 4.4 Urine Color Urine Clarity Urine pH Ur Specific [place] Urine Protein Urine Glucose (UA) Urine Ketones Urine Occult Blood Urine Nitrite Urine Bilirubin Urine Urobilinogen Ur Leukocyte Esterase Urine RBC Urine WBC Urine Mucus 08/19/16 02:55 WBC RBC Hgb Hct MCV MCH MCHC RDW Plt Count MPV Neut % (Auto) Lymph % (Auto) [place] % (Auto) Eos % (Auto) Baso % (Auto) Absolute Neuts (auto) Absolute Lymphs (auto) PT INR APTT Sodium Potassium Chloride Carbon Dioxide Anion Gap BUN Creatinine Estimated GFR (MDRD) Glucose Calculated Osmolality Calcium Total Bilirubin AST ALT Alkaline Phosphatase Creatine Kinase 61 Troponin I < 0.01 Kwo-H-Kwbpdlwlpry Pept Total Protein Albumin Triglycerides Cholesterol LDL Cholesterol, Calc VLDL Cholesterol, Calc HDL Cholesterol Cholesterol/HDL Ratio Urine Color Urine Clarity Urine pH Ur Specific [place] Urine Protein Urine Glucose (UA) Urine Ketones Urine Occult Blood Urine Nitrite Urine Bilirubin Urine Urobilinogen Ur Leukocyte Esterase Urine RBC Urine WBC Urine Mucus - Assessment (1) Acute coronary syndrome Acute I24.9 - ACUTE ISCHEMIC HEART DISEASE, UNSPECIFIED Comment/Plan: Still with chest pain and shortness of breath. Changing to admission status given high risk and acuity. Will check CT of chest to rule out PE but suspect that this is cardiac in nature. Planning on heart catheterization per Cardiology. (2) Hyperlipidemia Chronic E78.5 - HYPERLIPIDEMIA, UNSPECIFIED Qualifiers: Hyperlipidemia type: pure hypercholesterolemia Qualified Code(s): E78.00 - Pure hypercholesterolemia, unspecified; E78.0 - Pure hypercholesterolemia Comment/Plan: Continue medications and monitor. (3) Hypertension Chronic I10 - ESSENTIAL (PRIMARY) HYPERTENSION Qualifiers: Hypertension type: essential hypertension Qualified Code(s): I10 - Essential (primary) hypertension Comment/Plan: Continue home medications and monitor. We are changing verapamil to metoprolol (4) Peripheral vascular disease Acute I73.9 - PERIPHERAL VASCULAR DISEASE, UNSPECIFIED Comment/Plan: continue home medications Case Care Discussed with: Patient, Consultants, Family, Nursing Staff, Physical Therapy, Resource Management, Respiratory Therapy, [employer]
[2016-08-19] MEDS ORDERED: Pharmacy Review for Metformin - IV Contrast Given SCH (13:00)
[2016-08-19] MEDS: POTASSIUM CHLORIDE 10 MEQ TABLET PO SCH ×2 (13:35→17:25)
[2016-08-19] MEDS: METOPROLOL TARTRATE 25 MG TAB PO SCH ×2 (13:37→21:21)
[2016-08-19] MEDS: LOSARTAN POTASSIUM 50 MG TAB PO SCH (13:38)
[2016-08-19] MEDS: TAMSULOSIN HCL 0.4 MG CAP PO SCH (13:38)
[2016-08-19] MEDS: ASCORBIC ACID 500 MG TAB PO SCH (13:38)
[2016-08-19] MEDS: VIT B-C COMPLEX (NEPHROVITE) TAB PO SCH (13:39)
[2016-08-19] MEDS: ALLOPURINOL 300 MG TAB PO SCH (13:39)
[2016-08-19] MEDS: OMEGA-3-ACID ETHYL ESTERS 1000 MG CAP PO SCH ×2 (13:39→17:25)
[2016-08-19] MEDS: VITAMINS, MULTIPLE CAP PO SCH (13:40)
[2016-08-19] MEDS: RANOLAZINE 500 MG EXT RELEASE TAB PO SCH ×2 (14:25→21:21)
--- NOTE | 2016-08-19 15:31 | DIRPT ---
CLINICAL DATA: 75-year-old male with shortness of breath and chest pain for several days. EXAM: CT ANGIOGRAPHY CHEST WITH CONTRAST TECHNIQUE: Multidetector CT imaging of the chest was performed using the standard protocol during bolus administration of intravenous contrast. Multiplanar CT image reconstructions and MIPs were obtained to evaluate the vascular anatomy. CONTRAST: 100 mL of Isovue 370. COMPARISON: Chest CT 08/09/2014. FINDINGS: Mediastinum/Lymph Nodes: Filling defect in the distal right main pulmonary artery extending into segmental and subsegmental sized branches to the right upper lobe. This appears predominantly nonocclusive at this time. Smaller distal segmental and subsegmental sized emboli are also noted in the right lower lobe. No left-sided emboli are noted. Heart size is borderline enlarged. Pulmonic trunk is mildly dilated measuring 3.6 cm in diameter. Right ventricular diameter of 45 mm. Left ventricular diameter of 51 mm (RV to LV ratio of 0.88). There is atherosclerosis of the thoracic aorta, the great vessels of the mediastinum and the coronary arteries, including calcified atherosclerotic plaque in the left main, left anterior descending, left circumflex and right coronary arteries. Calcifications of the aortic valve. Calcifications of the mitral valve and mitral annulus. Small amount of pericardial fluid and/or thickening, most evident adjacent to the left ventricle, unlikely to be of any hemodynamic significance at this time. No associated pericardial calcification. Esophagus is unremarkable in appearance. No axillary lymphadenopathy. Lungs/Pleura: No acute consolidative airspace disease. No pleural effusions. No suspicious appearing pulmonary nodules or masses. Elevated right hemidiaphragm with some passive subsegmental atelectasis in the right middle and right lower lobe. Upper Abdomen: Unremarkable. Musculoskeletal/Soft Tissues: There are no aggressive appearing lytic or blastic lesions noted in the visualized portions of the skeleton. Review of the MIP images confirms the above findings. IMPRESSION: 1. Study is positive for moderate burden of pulmonary emboli involving the distal right main pulmonary artery extending into segmental and subsegmental sized branches of the right upper lobe, as well as a small burden in distal segmental and subsegmental sized branches to the right lower lobe. These appear to be nonocclusive at this time, and there is no belle pulmonary infarction. There is some mild dilatation of the pulmonic trunk, but no belle evidence a right-sided heart strain at this time. 2. Atherosclerosis, including left main and 3 vessel coronary artery disease. Assessment for potential risk factor modification, dietary therapy or pharmacologic therapy may be warranted, if clinically indicated. 3. There are calcifications of the aortic valve and mitral valve. Echocardiographic correlation for evaluation of potential valvular dysfunction may be warranted if clinically indicated. 4. Elevated right hemidiaphragm. Critical Value/emergent results were called by telephone at the time of interpretation on 08/19/2016 at 3:[address] CARYN BREWER MD, who verbally acknowledged these results. Electronically Signed By: Ger Drew M.D. On: 08/19/2016 15:28
[2016-08-19] MEDS: ATORVASTATIN 80 MG TAB PO SCH (21:21)
[2016-08-19] MEDS: Aspirin (Orange Enteric Coated) 325 mg tab PO SCH (21:21)
[2016-08-19] MEDS ORDERED: BENZONATATE 100 MG PERLES PO PRN (22:45)
[2016-08-19] MEDS ORDERED: GUAIFEN 100 MG-DEXTROMETH 10 MG PER 5 ML PO PRN (22:45)
[2016-08-19] MEDS: TEMAZEPAM 15 MG CAP PO PRN (23:20)
[2016-08-19] MEDS: Docusate Sodium 100 MG CAP PO PRN (23:20)
[2016-08-19] MEDS: ACETAMINOPHEN 325 MG/TAB TABLET PO PRN (23:24)
[2016-08-20 04:59] LABS: AUTOMATED BASOPHIL 1.2 % (0-2); AUTOMATED EOSINOPHIL 3.2 % (0-5); AUTOMATED LYMPH 25.2 % (17-44); AUTOMATED MONOCYTE 7.5 % (3-10); AUTOMATED NEUTROPHIL 62.9 % (45-76); MPV 9.8 fL (7.4-10.4)
[2016-08-20] MEDS: ENOXAPARIN SODIUM 100 MG, ENOXAPARIN SODIUM 30 MG SQ SCH ×4 (05:05→18:34)
[2016-08-20 05:06] LABS: BLOOD UREA NITROGEN 21 MG/DL (9-20); CALCIUM 8.8 MG/DL (8.4-10.2); CALCULATED OSMOLALITY 270 MOs/Kg (270-290); CHLORIDE 98 mEq/L (98-107); GLUCOSE 88 MG/DL (70-99); SODIUM LEVEL 139 mEq/L (137-146)
[2016-08-20] MEDS: NITROGLYCERINE 2 % OINTMENT PACK TOP SCH (05:06)
[2016-08-20] MEDS: ALLOPURINOL 300 MG TAB PO SCH (08:44)
[2016-08-20] MEDS: FUROSEMIDE 40 MG TAB PO SCH (08:44)
[2016-08-20] MEDS: TAMSULOSIN HCL 0.4 MG CAP PO SCH (08:44)
[2016-08-20] MEDS: METOPROLOL TARTRATE 25 MG TAB PO SCH ×2 (08:44→20:44)
[2016-08-20] MEDS: POTASSIUM CHLORIDE 10 MEQ TABLET PO SCH ×2 (08:44→18:34)
[2016-08-20] MEDS: RANOLAZINE 500 MG EXT RELEASE TAB PO SCH (08:44)
[2016-08-20] MEDS: LOSARTAN POTASSIUM 50 MG TAB PO SCH (08:44)
[2016-08-20] MEDS: ACETAMINOPHEN 325 MG/TAB TABLET PO PRN (08:53)
--- NOTE | 2016-08-20 09:34 | PCM.CARD ---
- Subjective Reason for visit: chest pain/ PE Subj: generally comfortable; less SOB, no orthopnea. Gives hx of months of increasing MONTERROSO No chest discomfort this AM. No further pressure. Transitioning primary care to Dr. Marcial from Dr. Bolaños. Has followed with Cardiology at [facility], for HBP and dyslipidemia, last cath many years ago, no significant disease then. Open to cath, not wedded to particular center; c/o severe claustrophobia. Vital Signs: Last Vital Signs Temp 97.8 F 08/20/16 08:40 Pulse 83 08/20/16 09:05 Resp 18 08/20/16 08:40 BP 135/63 08/20/16 08:40 Pulse Ox 96 08/20/16 08:40 Intake & Output 08/17/16 08/18/16 08/19/16 08/20/16 23:59 23:59 23:59 23:59 Intake Total 1115 392 Output Total 2140 1825 200 Balance -8838 -7838 -200 Patient's weight 129.909 kg 128.276 kg 127.261 kg PE: Physical Exam GEN: Obese, NAD. VS: as above HEENT: thick neck, ? JVD. Carotids normal CHEST: clear COR: RR, normal s1, s2, no murmur, gallop or rub ABD: obese, non-tnder, no distention EXTREM: traumatic right BK amputation SKIN: warm, dry NEURO: alert, no focal motor deficit. Lab/DI Results Reviewed: Laboratory Tests 08/18/16 08/18/16 08/19/16 13:45 17:25 02:55 WBC Hgb Hct Plt Count Sodium Potassium Chloride Carbon Dioxide BUN Creatinine Estimated GFR (MDRD) Creatine Kinase Troponin I < 0.01 < 0.01 Kni-N-Pvuapraryzo Pept 93 Triglycerides 96 Cholesterol 145 LDL Cholesterol, Calc 92.8 HDL Cholesterol 33.0 L 08/19/16 08/20/16 08/20/16 02:55 04:16 04:16 WBC 8.7 Hgb 13.3 L Hct 40.5 L Plt Count 115 L Sodium 139 Potassium 4.2 Chloride 98 Carbon Dioxide 35 H BUN 21 H Creatinine 0.60 L Estimated GFR (MDRD) > 60 Creatine Kinase 61 Troponin I < 0.01 Itk-A-Hxccxjcgkib Pept Triglycerides Cholesterol LDL Cholesterol, Calc HDL Cholesterol EKG f/u today: NSR. Normal tracing tele: NSR, no arrhythmias Echo 08/18: mod concentric LVH, normal systolic function, no segmental abnl; mild aortic stenosis normal RV size/function, only trace tricuspid regurg, no documented pulm hypertension CT: significant clot burden in right main PA and it's branches - extensive atherosclerotic change/calcfications in thor aorta and coronaries incl left main IMPRESSION: (1) acute PE, likely responsible for recent sx of CP and worsening dyspnea (2) 3-vessel coronary disease (? severity/ ? prognosis) based on multiple risk factors and extensive coronary calcification on CT Discharge Disposition Plan: REC/PLAN: acute PE, risk of interrupting full anticoagulation and/or requirement for additing dual antiplatelet therapy complicates any invasive approach to CAD - discussed with pt. Definitive coronary angio at some point seems appropriate, but current priority is rx for acute PE. - Pt accepts suggestion for perfusion stress to stratify risk, plan deferring consideration for cath unless stress test shows high risk features (extensive areas of reversible hypoperfusion). - anticipate close oupt f/u with Dr. Andersen as well as Dr. Marcial.
[2016-08-20] MEDS: OMEGA-3-ACID ETHYL ESTERS 1000 MG CAP PO SCH ×2 (13:39→18:33)
[2016-08-20] MEDS: VITAMINS, MULTIPLE CAP PO SCH (13:39)
[2016-08-20] MEDS: ASCORBIC ACID 500 MG TAB PO SCH (13:39)
[2016-08-20] MEDS: VIT B-C COMPLEX (NEPHROVITE) TAB PO SCH (13:39)
--- NOTE | 2016-08-20 15:53 | GENMEDPROG ---
Chief Complaint: Some better today. Denies chest pain. Still moderate shortness of breath. Plan is for stress testing Notes Reviewed: Yes Events from last night noted and discussed with Clinical Staff Current Medication List: Reviewed Currently: Reports: MONTERROSO, SOB, Sputum. Denies: Cough, Wheezing DVT Prophylaxis: Yes - Physical Examination Vital Signs and I&O: Last Vital Signs Temp 98 F 08/20/16 11:58 Pulse 63 08/20/16 15:00 Resp 18 08/20/16 11:58 BP 106/52 L 08/20/16 11:58 Pulse Ox 95 08/20/16 11:58 Oxygen Pulse Oxygen Saturation 95 O2 Device Nasal Cannula Oxygen Flow Rate 2 Fraction of Inspired Oxygen ( FIO2) Intake & Output 08/17/16 08/18/16 08/19/16 08/20/16 23:59 23:59 23:59 23:59 Intake Total 360 480 Output Total 525 1000 Balance -165 -520 Patient's weight 127.261 kg General: Alert, Oriented x3, Cooperative, Mild distress. negative: Well appearing (Ill-appearing) HEENT: Normal, PERRLA, EOMI, Anicteric Sclera Neck: Non-tender, Full range of motion, Normal Trachea alignment, Normal inspection. negative: JVD Lymphatics: Normal (no adenopathy). negative: Adenopathy Respiratory: Accessory Muscle Use, Tachypnea Cardiovascular: Regular rate and rhythm, No Gallops,Rubs/Murmurs GI: Normal bowel sounds, Soft, Non tender, No hepatospenomegaly, No masses Extremities/Musculoskeletal: Normal pulses. negative: Tenderness, Swelling, Clubbing Skin: Warm,Dry and Intact, No rashes, No breakdown, No significant lesion Neurological: Normal Steady Gait, Normal speech, Strength at 5/5 X4 ext, Normal tone, Cranial nerves 3-12 NL Psych/Mental Status: Appropriate, Normal Affect, Cooperative Lab/DI/Studies Reviewed: Laboratory Results - last 24 hr 08/20/16 08/20/16 04:16 04:16 WBC 8.7 RBC 4.37 L Hgb 13.3 L Hct 40.5 L MCV 93 MCH 30.6 MCHC 33.0 RDW 15.3 H Plt Count 115 L MPV 9.8 Neut % (Auto) 62.9 Lymph % (Auto) 25.2 Vilas % (Auto) 7.5 Eos % (Auto) 3.2 Baso % (Auto) 1.2 Absolute Neuts (auto) 5.39 Absolute Lymphs (auto) 2.18 Sodium 139 Potassium 4.2 Chloride 98 Carbon Dioxide 35 H Anion Gap 10 BUN 21 H Creatinine 0.60 L Estimated GFR (MDRD) > 60 Glucose 88 Calculated Osmolality 270 Calcium 8.8 - Assessment (1) Pulmonary embolus Acute I26.99 - OTHER PULMONARY EMBOLISM WITHOUT ACUTE COR PULMONALE Qualifiers: Pulmonary embolism type: other Chronicity: acute Acute cor pulmonale presence: without acute cor pulmonale Qualified Code(s): I26.99 - Other pulmonary embolism without acute cor pulmonale Comment/Plan: Moderate clot burden. However not significantly hypoxic or tachycardic. For now will leave on Lovenox as we continue to evaluate cardiac issues. If stress test negative likely switch over to Eliquis. (2) Acute coronary syndrome Acute I24.9 - ACUTE ISCHEMIC HEART DISEASE, UNSPECIFIED Comment/Plan: CT revealed PE however does show coronary artery calcifications consistent with coronary artery disease. Unclear significance of this as PE may be the main cause of his symptoms. Cardiology has been following and is planning stress testing for risk stratification (3) Hyperlipidemia Chronic E78.5 - HYPERLIPIDEMIA, UNSPECIFIED Qualifiers: Hyperlipidemia type: pure hypercholesterolemia Qualified Code(s): E78.00 - Pure hypercholesterolemia, unspecified; E78.0 - Pure hypercholesterolemia Comment/Plan: Continue medications and monitor. (4) Hypertension Chronic I10 - ESSENTIAL (PRIMARY) HYPERTENSION Qualifiers: Hypertension type: essential hypertension Qualified Code(s): I10 - Essential (primary) hypertension Comment/Plan: Continue home medications and monitor. We are changing verapamil to metoprolol (5) Peripheral vascular disease Acute I73.9 - PERIPHERAL VASCULAR DISEASE, UNSPECIFIED Comment/Plan: continue home medications Case Care Discussed with: Patient, Consultants, Family, Physical Therapy, Resource Management, Respiratory Therapy
[2016-08-20] MEDS: ATORVASTATIN 80 MG TAB PO SCH (20:44)
[2016-08-20] MEDS: Aspirin (Orange Enteric Coated) 325 mg tab PO SCH (20:44)
[2016-08-20] MEDS: TEMAZEPAM 15 MG CAP PO PRN (23:08)
[2016-08-20] MEDS: Docusate Sodium 100 MG CAP PO PRN (23:12)
[2016-08-21 04:51] VITALS: BMI 44.2
[2016-08-21] MEDS ORDERED: REGADENOSON 0.4 MG/5 ML SYRINGE IV ONE (09:00)
[2016-08-21] MEDS ORDERED: SODIUM CHLORIDE 0.9% 10 ML FLUSH FLUSH ONE (09:00)
[2016-08-21] MEDS ORDERED: SESTAMIBI 8 MCI V IV ONE (10:33)
[2016-08-21 11:30] VITALS: TEMP 98.1
--- NOTE | 2016-08-21 11:43 | PCM.STRESS ---
REGADENOSON MYOCARDIAL PERFUSION STRESS TEST DATE OF PROCEDURE: 08/20-10/2016 INDICATION: Chest pain-acute PE-extensive coronary calcifications RESTING DATA: HR 62 B/P 135/79 Chest clear Cor: Regular rhythm, normal heart sounds, no murmur or gallop RESTING EKG: Normal sinus normal tracing PROTOCOL: Approx 25 mCi of technetium-99m pyrophosphate (Cardiolyte) was injected intravenously and tomograhic imaging performed at rest. The patient returns to the stress lab on August 21, when 0.4 mg of regadenoson was injected as an IV bolus, followed by an additional 25 mCi of Cardiolyte and tomographic imaging repeated. Heart rate lili modestly to 96/min BP remained stable in range of 186/90 Patient tolerated well. No chest pain. STRESS EKG: Rhythm: Stable sinus, no pauses. ST-T changes: None MYOCARDIAL PERFUSION IMAGING: Rotational display of raw projection data documents [stable pt position during imaging]. [There is a high right hemidiaphragm and prominent hepatic uptake]. There is homogeneous radiotracer uptake throughout on both rest and stress, with no significant perfusion defect identified. Gated imaging discloses normal wall thickening in all segments within normal end systolic volume of 35 ml and an ejection fraction of 66% IMPRESSION: (1) Functional capacity is not assessed (2) Normal resting left ventricular size and function, with end-systolic volume of 35 ml and ejection fraction of 66 %. (3) [No areas of vasodilator induced hypoperfusion are identified] Negative pharmacologic perfusion stress test for potential ischemia.
--- NOTE | 2016-08-21 11:47 | PCM.CARD ---
- Subjective Reason for visit: f/u acute PE; CAD by coronary calcifications Subj: pt reports feeling well /comfortable. No recurrent/ongoing chest discomfort. No dyspnea at rest, no orthopnea, palpitations, tanisha OOB ok. Vital Signs: Last Vital Signs Temp 98.1 F 08/21/16 11:29 Pulse 72 08/21/16 11:29 Resp 18 08/21/16 11:29 BP 141/65 08/21/16 11:29 Pulse Ox 96 08/21/16 11:29 Intake & Output 08/18/16 08/19/16 08/20/16 08/21/16 23:59 23:59 23:59 23:59 Intake Total 1115 392 720 Output Total 2140 4352 1907 800 Balance -0181 -2983 -1180 -800 Patient's weight 129.909 kg 128.276 kg 127.261 kg 128.094 kg PE: Physical Exam GEN: obese, age appopraite, NAD VSS VS: as above HEENT: thck neck, normal carotids CHEST: clear, no rubs COR: RR, distant s1, s2, no s3 or murmur. ABD: obese EXTREM: right BK amp, no left edema SKIN: warm, dry NEURO: alert, no focal deficit or tremor. Lab/DI Results Reviewed: tele: NSR, no arrhythmia Lexiscan perf stress today: normal perfusion images: rest and stress; LVEF 66% IMPRESSION: acute PE - symptomatically and hemodynamically stable CAD - negative perfusion stress lends reassurance - Plan PLAN: transition from Lovenox to apixaban (discussed with Dr. St) - pt/ cautioned about drop in dose from 10 mg bid to 5 mg bid in one week. anticipate discharge soon, f/u PCP and pt/ indicate intention to f/u with Senior Business Manager Dr. Chapman at [facility] in [place], will consider transferring care closer to home in future. a few weeks.
[2016-08-21] MEDS ORDERED: APIXABAN 5 MG TABLET PO SCH ×2 (12:00→13:00)
[2016-08-21] MEDS ORDERED: HEPARIN 5000 UNITS/ML VIAL IV ONE (12:10)
[2016-08-21] MEDS: VIT B-C COMPLEX (NEPHROVITE) TAB PO SCH (12:37)
[2016-08-21] MEDS: VITAMINS, MULTIPLE CAP PO SCH (12:37)
[2016-08-21] MEDS: ASCORBIC ACID 500 MG TAB PO SCH (12:37)
[2016-08-21] MEDS: ALLOPURINOL 300 MG TAB PO SCH (12:38)
[2016-08-21] MEDS: FUROSEMIDE 40 MG TAB PO SCH (12:38)
[2016-08-21] MEDS: TAMSULOSIN HCL 0.4 MG CAP PO SCH (12:38)
[2016-08-21] MEDS: LOSARTAN POTASSIUM 50 MG TAB PO SCH (12:38)
[2016-08-21] MEDS: OMEGA-3-ACID ETHYL ESTERS 1000 MG CAP PO SCH (12:38)
[2016-08-21] MEDS: POTASSIUM CHLORIDE 10 MEQ TABLET PO SCH (12:38)
[2016-08-21] MEDS: METOPROLOL TARTRATE 25 MG TAB PO SCH (12:38)
--- NOTE | 2016-08-21 13:11 | PCM.DCS92 ---
- Final/Secondary Discharge Diagnosis (1) Pulmonary embolus Acute I26.99 - OTHER PULMONARY EMBOLISM WITHOUT ACUTE COR PULMONALE other acute without acute cor pulmonale I26.99 - Other pulmonary embolism without acute cor pulmonale Comment: Moderate clot burden. However not significantly hypoxic or tachycardic. Resting comfortably on room air. Stress test is negative for ischemia. Will continue to treat pulmonary embolus and can be followed as an outpatient. (2) Acute coronary syndrome Acute I24.9 - ACUTE ISCHEMIC HEART DISEASE, UNSPECIFIED Present on Admission: Yes Comment: CT revealed PE however does show coronary artery calcifications consistent with coronary artery disease. Stress test negative for reversible ischemia. Patient has been followed by Dr. Henok Chapman at [facility]. I have contacted him and notified him of the results. Patient is considering transferring his care closer to home due to the difficulties of traveling. Dr. Chapman will arrange follow-up in 3-4 weeks and we will also arrange follow-up with Dr. Andersen at patient request. (3) Hyperlipidemia Chronic E78.5 - HYPERLIPIDEMIA, UNSPECIFIED Present on Admission: Yes pure hypercholesterolemia E78.00 - Pure hypercholesterolemia, unspecified; E78.0 - Pure hypercholesterolemia Comment: Continue medications and monitor. (4) Hypertension Chronic I10 - ESSENTIAL (PRIMARY) HYPERTENSION Present on Admission: Yes essential hypertension I10 - Essential (primary) hypertension Comment: Continue home medications and monitor. We changed verapamil to metoprolol (5) Peripheral vascular disease Acute I73.9 - PERIPHERAL VASCULAR DISEASE, UNSPECIFIED Present on Admission: Yes Comment: continue home medications Discharge Disposition: Home Discharge Condition: Improved Cognitive Discharge Status: Unimpaired Fuctional Discharge Status: Independent Physician Follow up/Referrals: Patrick Marcial MD [Primary Care Provider] - One Week Patrick Andersen MD [Staff Physician] - Three Weeks New Prescriptions: Apixaban [Eliquis] 10 mg PO DIR #74 tab Metoprolol Tartrate [Lopressor] 25 mg PO BID #60 tablet Discharge Home Medication List Tamsulosin HCl [Flomax] 0.4 mg PO QAM 09/28/13 [History Confirmed 08/18/16 Last Taken 08/18/16] Vit B Comp/C/FA/Iron/Vit E [Vitamin B Complex Tablet] 1 tab PO DAILY 09/28/13 [ History Confirmed 12/31/16 Last Taken 08/18/16] Allopurinol [Zyloprim] 300 mg PO QAM 08/09/14 [History Confirmed 08/18/16 Last Taken 08/18/16] Ascorbic Acid [Vitamin C] 1,000 mg PO DAILY 08/09/14 [History Confirmed Last Taken 08/18/16] Aspirin (OrangeEnteric Coated) [Ecotrin] 325 mg PO HS 08/09/14 [History Confirmed 08/18/16 Last Taken 08/17/16] Atorvastatin Calcium [Lipitor] 80 mg PO HS 08/09/14 [History Confirmed 08/18/16 Last Taken 08/17/16] Combs-3S/Dha/Epa/Fish Oil [Fish Oil 1,200 mg Softgel] 1,200 mg PO BID 08/09/14 [ History Confirmed 08/18/16 Last Taken 08/18/16] Vitamins, Multiple [Unicap] 1 cap PO DAILY 08/09/14 [History Confirmed 08/18/16 Last Taken 08/18/16] Furosemide [Lasix] 40 mg PO QAM 08/18/16 [History Confirmed 08/18/16 Last Taken 08/18/16] Losartan Potassium [Cozaar] 100 mg PO QAM 08/18/16 [History Confirmed 08/18/16 Last Taken 08/18/16] Potassium Chloride 10 meq PO BID 08/18/16 [History Confirmed 08/18/16 Last Taken 08/18/16] Apixaban [Eliquis] 10 mg PO DIR #74 tab 08/21/16 [Rx Last Taken Unknown] Metoprolol Tartrate [Lopressor] 25 mg PO BID #60 tablet 08/21/16 [Rx Last Taken Unknown] O2 Device: Room Air Diet at Discharge: Heart Healthy, Low Fat Activity: As Tolerated Call Office For: Worsening Symptoms - DC Summary Notes Hospital Course Note:: Discharge summary on patient named JAYRO DELATORRE admitted to [facility] on 08/19/[address] MD. Date of discharge is []. Mr. Delatorre is a pleasant 75-year-old white male with a history of peripheral arterial disease and right BKA who presented to the emergency room with 2 days of increasing shortness of breath, dyspnea on exertion, and chest tightness. He pointed to the center of his chest and stated that the pain radiated up towards his neck. He denied nausea, vomiting or diaphoresis. He had never had symptoms like this before. He denied any previous heart history. He states he had a catheterization he believed approximately 20 years ago which was okay and stress test 4-5 years ago which was negative. Our concern was for acute coronary syndrome and he was admitted to the hospital. He was started on full strength Lovenox, aspirin. His verapamil was changed over to metoprolol. His cardiac enzymes were negative. I had Dr. Andersen with Cardiology see him in consultation we both felt that he was high risk and likely warranted heart catheterization. Patient was deciding between whether to have heart catheterization here or be transferred to [facility] where his primary bore mill operator for plastic could evaluate him. While waiting on that decision we elected to go ahead and check a CT for a pulmonary embolus. CT scan of the chest showed right upper lobe and right lower lobe segmental and subsegmental pulmonary emboli. The CT also showed extensive coronary artery calcifications in his left main and 3 vessels. He did not have any significant tachycardia and no evidence of right heart strain or Ely sign. These results were discussed with patient and recommendation was made for full anticoagulation. We were still concerned about the possibility of coronary artery disease and for risk stratification purposes we elected to perform a stress test. Nuclear stress testing showed no evidence of reversible ischemia. On the day of discharge she feels better and requests discharge home. He is resting comfortably on room air with stable vitals. Due to increasing debility and difficulty with travel he is considering transferring his cardiac care closer to home. I have discussed this with his primary bore mill operator for plastic Dr. Henok Chapman at [facility] who will see him in follow-up in 3-4 weeks. Patient feels that it to be a good idea to have a local bore mill operator for plastic as well and we will go ahead and arrange a follow-up appointment with Dr. Andersen in 3-4 weeks as well. Total Time: 1 hour - Physical Exam Vital Signs: Last Vital Signs Temp 98.1 F 08/21/16 11:29 Pulse 72 08/21/16 11:29 Resp 18 08/21/16 11:29 BP 141/65 08/21/16 11:29 Pulse Ox 96 08/21/16 11:29 Oxygen Pulse Oxygen Saturation 96 O2 Device Room Air Oxygen Flow Rate 2 Fraction of Inspired Oxygen ( FIO2) Constitutional: No apparent distress, Alert (Awake), Well nourished, Well appearing Oriented to: Time, Person, Place - HEENT Head: Normal ( normocephalic) Eye: Normal (PERRL, EOMI, Sclera white) Oropharynx: Normal (Pharynx:Moist without exudate,Gums-no swelling) Tympanic Membrane: Normal ENT EAC: Normal TMJ: Normal Nose: No Symptoms Reported (septum midline) - Respiratory/Cardiovascular Respiratory: Accessory Muscle Use, Tachypnea Cardiovascular: Normal - GI Auscultation: Normal (NABS) Palpation: Normal (Soft,No rebound or guarding, non distended) Tenderness: Non tender - Musculoskeletal Back: Normal (Non-Tender) Extremities: Normal (Normal tone, Pulses 2+ No cyanosis or edema, FROM) - Integumentary Skin: Warm, Dry Lymphatics: Normal (no adenopathy). negative: Adenopathy - Neurologic Memory Impaired: Normal Motor Function: Normal Cranial Nerve: Normal Cerebellar: Normal Mood Description: Normal Thought: Coherent Perception: Normal
[2016-08-21] MEDS: ENOXAPARIN SODIUM 100 MG, ENOXAPARIN SODIUM 30 MG SQ SCH ×2 (13:46)
[2016-08-21 15:48] VITALS: BP 117/58; PULSE 67
--- NOTE | 2016-08-21 16:40 | CAPUEKG ---
[place], [place] Test Date: 2016-08-21 Pat Name: JAYRO DELATORRE Department: Room: 441 Gender: Male Needle Polisher: : Requested By: Order Number: Reading MD: Waldo Guerrier Measurements Intervals [place] Rate: 65 P: 84 [place]: 136 QRS: 82 QRSD: 86 T: 57 QT: 394 QTc: 409 Interpretive Statements Normal sinus rhythm with sinus arrhythmia No change from prior tracing. Normal ECG Electronically Signed On 08-21-16 16:40:04 EST by Waldo Guerrier <[id number]> [id number]
--- NOTE | 2016-08-21 16:42 | CAPUEKG ---
[place], [place] Test Date: 2016-08-20 Pat Name: JAYRO DELATORRE Department: Room: 441 Gender: Male Fulfillment Associate: : Requested By: Order Number: Reading MD: Waldo Guerrier Measurements Intervals [place] Rate: 69 P: 78 [place]: 146 QRS: 87 QRSD: 106 T: 59 QT: 432 QTc: 462 Interpretive Statements Normal sinus rhythm Normal ECG Electronically Signed On 08-21-16 16:42:11 EST by Waldo Guerrier <[id number]> [id number]
[2016-08-28] MEDS ORDERED: APIXABAN 5 MG TABLET PO SCH (09:00)
== END 2016-08-21 16:56 | disposition home or self-care (01) | DRG 311 ==
LOC: ED 12:25 → PCU 16:04 → OBSVTOIN 08-19 12:37
PROVIDERS: ADMIT Hospitalist; ATTEND Hospitalist
DX: I24.9 Acute ischemic heart disease, unspecified (principal); I26.99 Other pulmonary embolism without acute cor pulmonale; I11.0 Hypertensive heart disease with heart failure; I50.9 Heart failure, unspecified; E78.00 Pure hypercholesterolemia, unspecified; I73.9 Peripheral vascular disease, unspecified; Z85.46 Personal history of malignant neoplasm of prostate; Z79.899 Other long term (current) drug therapy
CPT/HCPCS: 36415; 71010; 71275; 78452; 80048; 80053; 80061; 81001; 82550; 83880; 84484; 85025; 85610; 85730; 93005; 93017; 93306; 96361; 96372; 96374; 96375; 99285; A4216; A9500; A9698; G0378; J1644; J1650; J1940; J2270; J2405; J2785; J3490